=== PATIENT | female | born 1995 | race Caucasian/White ===

== ENCOUNTER 2017-12-27 14:58 | Emergency (ER) | payer BC ==
[2017-12-27] MEDS ORDERED: Silver Sulfadiazine 1% Crm 50 GM Tube TOP ONE (15:22)
[2017-12-27] MEDS ORDERED: Diphtheria,Pertussis(Acell),Tetanus Vaccine 0.5 ML Syringe IM ONE (15:22)
[2017-12-27] MEDS ORDERED: Ketorolac 60 MG/2 ML SDV IM ONE (15:24)
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
== END 2017-12-27 16:13 | disposition home or self-care (01) ==
LOC: MW.ED 14:58
DX: T23.252A Burn of second degree of left palm, initial encounter (principal); Z88.0 Allergy status to penicillin; Z88.1 Allergy status to other antibiotic agents; Z23 Encounter for immunization
CPT/HCPCS: 16020; 90471; 90715; 96372; 99283; A9270; J1885

== ENCOUNTER 2021-01-14 15:43 | Emergency (ER) | payer OTHER ==
[2021-01-14] MEDS ORDERED: Ibuprofen 600 MG Tab PO ONE (16:23)
[2021-01-14] MEDS ORDERED: traMADol 50 MG Tab PO ONE (16:23)
--- NOTE | 2021-01-14 16:40 | EDM.PDOC ---
ED HPI GENERAL MEDICAL PROBLEM - General Chief Complaint: Lower Extremity Injury/Pain Stated Complaint: FELL IN HOLE HURT BOTH ANKLES Time Seen by Provider: 01/14/21 16:22 - History of Present Illness INITIAL COMMENTS - FREE TEXT/NARRATIVE: HISTORY AND PHYSICAL: History of present illness: This is a 25-year-old female who presents ER today complaining of pain to both ankles over the bilateral lateral aspects that began earlier today after a fall. Patient reports that she was working in her yard and while she was walking there was a dip in the ground that caused her to fall forward. Patient reports that she was able to stabilize her fall somewhat with her hands however it did still result in a significant twisting of both ankles. Patient reports that she has been able to weight-bear however with a significant amount of pain and discomfort and that she has significant amount of pain and discomfort and swelling to her left lateral malleolus as well as her right lateral malleolus. Patient denies any pain to her wrists hands elbows upper extremities knees or thighs or hips. Patient has any head trauma. Review of systems: As per history of present illness and below otherwise all systems reviewed and negative. Past medical history: As per history of present illness and as reviewed below otherwise noncontributory. Surgical history: As per history of present illness and as reviewed below otherwise noncon tributory. Social history: No reported history of drug abuse. Family history: As per history of present illness and as reviewed below otherwise noncontributory. Physical exam: This patient was seen and evaluated during the 2019 SARS-CoV-2 novel coronavirus pandemic period. Community viral transmission is ongoing at time of this encounter and the emergency department is operating under pandemic response procedures. Constitutional: Patient is oriented to person, place, and time. Appears well- developed and well-nourished. No distress. HEENT: Moist mucous membranes Head: Normocephalic and atraumatic Eyes: Right eye exhibits no discharge. Left eye exhibits no discharge. No scleral icterus Neck: Normal range of motion. No tracheal deviation present. Cardiovascular: Normal rate and regular rhythm. Pulmonary: Effort normal, no respiratory distress. Abdominal: No distention Musculoskeletal: Normal range of motion Neurologic: Alert and oriented to person, place and time. Skin: [place], warm and dry. Psychiatric: Normal mood and affect. Behavior is normal. Judgment and thought content normal. Nursing note and vital signs have been reviewed Patient's ER physical exam is significant for soft tissue swelling with tenderness to palpation to her bilateral lower extremities over the lateral malleolus on both her left and right ankles. Patient is neurovascular intact. Patient has swelling over her left lateral malleolus much greater than over her right lateral malleolus. Diagnostics: Bilateral ankle x-rays reveal no evidence of acute fracture or dislocation. Soft tissue swelling identified. Mortise views intact. Therapeutics: DME: Crutches as well as bilateral ankle splints will be applied to assist with healing of bilateral ligamentous injuries to both ankles. This will need to stay applied for 1 week or until cleared by orthopedic surgery/PCP. This will assist the patient by immobilizing the ankle joint and allow for healing of the ligamentous tear/injuries that have occurred from the fall. Motrin/Ultram Assessment and plan: 25-year-old female who presents ER today complaining of bilateral ankle pain after injury. Patient will have x-rays obtained. Patient will be given ibuprofen and Ultram to assist with her pain and discomfort. X-rays of bilateral ankles reveal no acute fracture or dislocation. Patient will be placed in bilateral air splints for assistance with healing and pain control. Patient also be given crutches to assist with pain and discomfort. Patient also be given a prescription for Ultram and Motrin to assist with her pain. Patient has requested a work note for 1 week until she is able to see orthopedics. Reassessment at the time of disposition demonstrates that the patient is in no acute distress. The patient has remained stable throughout the entire ED visit and is without objective evidence for acute process requiring urgent intervention or hospitalization. The patient is stable for discharge, counseling is provided as documented above, discussed symptomatic treatment and specific conditions for return. I have spoken with the patient/caregiver and discussed todays findings, in addition to providing specific details for the plan of care. Questions are answered and there is agreement with the plan. Definitive disposition and diagnosis as appropriate pending reevaluation and review of above. Left Ankle Pain Score (Numeric/FACES): 4 - Related Data Allergies Allergy/AdvReac Type Severity Reaction Status Date / Time azithromycin [From Zithromax] Allergy Other Verified 01/14/21 16:25 Penicillins Allergy Rash Verified 01/14/21 16:25 Home Meds: Home Meds Ibuprofen 600 mg PO Q6HR PRN #30 tablet 01/14/21 [Rx] traMADol [Ultram] 50 mg PO Q6H PRN #12 tab 01/14/21 [Rx] Past Medical History - Past Health History Medical/Surgical History: Denies Medical/Surgical History - Infectious Disease History Infectious Disease History: Reports: Chicken Pox Social & Family History - Family History Family Medical History: No Pertinent Family History - Caffeine Use Caffeine Use: Reports: Coffee Review of Systems - Review of Systems Review Of Systems: See Below ED EXAM, GENERAL - Physical Exam Exam: See Below Course - Vital Signs Last Recorded V/S: Last Vital Signs Temp 97.9 F 01/14/21 16:20 Pulse 102 H 01/14/21 16:20 Resp BP 176/95 H 01/14/21 16:20 Pulse Ox 95 01/14/21 16:20 - Orders/Labs/Meds Meds: Medications Discontinued Medications Generic Name Dose Route Start Last Admin Trade Name Freq PRN Reason Stop Dose Admin Ibuprofen 600 mg 01/14/21 16:23 01/14/21 16:29 Ibuprofen 600 Mg Tab PO 01/14/21 16:24 600 mg ONETIME ONE Administration Tramadol HCl 50 mg 01/14/21 16:23 01/14/21 16:30 Tramadol 50 Mg Tab PO 01/14/21 16:24 50 mg ONETIME ONE Administration Departure - Departure Time of Disposition: 17:20 Disposition: Home, Self-Care 01 Condition: Good Clinical Impression: Left ankle sprain Qualifiers: Encounter type: initial encounter Involved ligament of ankle: unspecified ligament Qualified Code(s): S93.402A - Sprain of unspecified ligament of left ankle, initial encounter Right ankle sprain Qualifiers: Encounter type: initial encounter Involved ligament of ankle: unspecified ligament Qualified Code(s): S93.401A - Sprain of unspecified ligament of right ankle, initial encounter - Discharge Information Instructions: Ankle Sprain, Cast or Splint Care, Adult, [id number], Crutch Use, Adult Referrals: Shaun West MD [Primary Care Provider] - Forms: ED Department Discharge Additional Instructions: You were seen and evaluated in the ER today secondary to an ankle sprain to both ankles. The x-rays revealed no fracture. You'll be placed in air splints to both ankles to assist with healing and pain control. You'll also be given crutches to assist you with ambulation. You'll be given a prescription for ibuprofen and Ultram to help with your pain. Please make an appointment to follow-up with orthopedic surgery for reevaluation of your ankle sprains given the significant amount of swelling that you are experiencing. You can apply ice to the area for the next 2 to 3 days as well as keep elevated to help decrease amount of swelling that you're having. Generally with ankle sprains, we recommend weightbearing as tolerated. Basically, if it hurts, don't do it. [facility] - Orthopedic Clinic Professional Building [address] [place] [address], [address] [place] [address] The following information is given to patients seen in the emergency department who are being discharged to home. This information is to outline your options for follow-up care. We provide all patients seen in our emergency department with a follow-up referral. The need for follow-up, as well as the timing and circumstances, are variable depending upon the specifics of your emergency department visit. If you don't have a primary care physician on staff, we will provide you with a referral. We always advise you to contact your personal physician following an emergency department visit to inform them of the circumstance of the visit and for follow-up with them and/or the need for any referrals to a consulting specialist. The emergency department will also refer you to a specialist when appropriate. This referral assures that you have the opportunity for follow-up care with a specialist. All of these measure are taken in an effort to provide you with optimal care, which includes your follow-up. Under all circumstances we always encourage you to contact your private physician who remains a resource for coordinating your care. When calling for follow-up care, please make the office aware that this follow-up is from your recent emergency room visit. If for any reason you are refused follow-up, please contact the [facility] Emergency Department at and asked to speak to the emergency department charge nurse. [facility] - Primary Care [address] [place] [id number] [facility] [address] [place] [address] Sepsis Event Note (ED) - Focused Exam Vital Signs: Vital Signs Temp Pulse BP Pulse Ox 01/14/21 16:20 97.9 F 102 H 176/95 H 95
--- NOTE | 2021-01-14 17:04 | CR ---
Indication: Fell in hole, twisted both ankles. Technique: Bilateral ankle 6 views. Comparison: None. Findings: Right ankle: No acute fracture or dislocation. Ankle mortise is intact. Soft tissue swelling about the ankle. Left ankle: No acute fracture or dislocation. Ankle mortise is intact. Soft tissue swelling about the ankle. Moderate ankle joint effusion. Impression: Soft tissue swelling about the ankles bilaterally. Moderate left ankle joint effusion. No other acute findings. Dictated by Ava Aguero MD @ 01/14/2021 5:01:[address] Ava Aguero @ Jan 14 2021 5:01PM
== END 2021-01-14 17:42 | disposition home or self-care (01) ==
LOC: MW.ED 15:43
DX: S93.401A Sprain of unspecified ligament of right ankle, initial encounter (principal); S93.402A Sprain of unspecified ligament of left ankle, initial encounter; Z88.1 Allergy status to other antibiotic agents; Z88.0 Allergy status to penicillin; X50.1XXA Overexertion from prolonged static or awkward postures, initial encounter
CPT/HCPCS: 73610; 99283; A9270; 29515

== ENCOUNTER 2024-05-13 16:12 | Emergency (ER) | payer OTHER ==
[2024-05-13] MEDS: Bacitracin Oint 28.35 GM Tube TOP ONE (17:42)
== END 2024-05-13 18:35 | disposition home or self-care (01) ==
LOC: MW.ED 16:12
DX: M25.512 Pain in left shoulder (principal); I10 Essential (primary) hypertension; E03.9 Hypothyroidism, unspecified; Z75.8 Other problems related to medical facilities and other health care; Z88.0 Allergy status to penicillin; Z88.1 Allergy status to other antibiotic agents; Z79.899 Other long term (current) drug therapy; W54.0XXA Bitten by dog, initial encounter
CPT/HCPCS: 73562; 99283; A9270

== ENCOUNTER 2025-06-21 10:06 | Emergency (ER) | payer OTHER | END 2025-06-21 12:36 | disposition home or self-care (01) | LOC: MW.ED 10:06 | DX: S93.492A Sprain of other ligament of left ankle, initial encounter (principal); I10 Essential (primary) hypertension; E03.9 Hypothyroidism, unspecified; Z88.0 Allergy status to penicillin; Z88.1 Allergy status to other antibiotic agents; Z79.890 Hormone replacement therapy; Z79.899 Other long term (current) drug therapy; W19.XXXA Unspecified fall, initial encounter | CPT/HCPCS: 73610-26-LT; 73610-LT; 73630-26-LT; 73630-LT; 99283 ==